=== PATIENT | male | born 1985 | race Caucasian/White ===

== ENCOUNTER 2018-01-07 22:17 | Emergency (ER) | payer MEDICAID ==
[~2018-01-07] VITALS: Ht 177.8 cm; Wt 84.1 kg
[2018-01-07 22:38] VITALS: Ht 177.8 cm; Wt 84.1 kg
[2018-01-08] MEDS ORDERED: ULTRAM50 MG PO (00:42)
[2018-01-08 00:52] VITALS: BP 113/78
== END 2018-01-08 00:52 | disposition home or self-care (01) ==
LOC: D.ER 22:17
DX: S00.93XA Contusion of unspecified part of head, initial encounter (principal); Y04.2XXA Assault by strike against or bumped into by another person, initial encounter; Y93.89 Activity, other specified; Y92.019 Unspecified place in single-family (private) house as the place of occurrence of the external cause; S01.91XA Laceration without foreign body of unspecified part of head, initial encounter; F17.200 Nicotine dependence, unspecified, uncomplicated

== ENCOUNTER 2019-10-08 21:40 | Emergency (ER) | payer MEDICAID ==
[~2019-10-08] VITALS: Ht 177.8 cm; Wt 90.9 kg
[~2019-10-08 21:40] MED LIST: ULTRAM50 MG PO
[2019-10-08 21:44] VITALS: Ht 177.8 cm; Wt 90.9 kg
[2019-10-08 22:13] LABS: BASOPHILS 0.6 % (0-2); EOSINOPHILS 3.4 % (0-7); HEMATOCRIT 41.2 % (42.0-54.0); HEMOGLOBIN 14.2 g/dL (13.5-17.5); IMMATURE GRANULOCYTES 0.3 % (0-5); LYMPHOCYTES 41.9 % (15-50); MCH 28.5 pg (26.0-34.0); MCHC 34.5 g/dL (31.0-37.0); MCV 82.6 fL (80.0-100.0); MEAN PLATELET VOLUME 8.9 fL (7.4-10.4); NEUTROPHILS 44.8 % (40-80); PLATELET COUNT 220 10x3/uL (130-400); RBC 4.99 10x6/uL (4.20-6.10); RDW 12.7 % (11.5-14.5); WBC 7.9 10x3/uL (4.8-10.8)
[2019-10-08 22:29] LABS: CALC OSMOLALITY 279 mosm/kg (275-300); CALCIUM 7.8 mg/dL (8.5-10.1); CARBON DIOXIDE 27.2 mmol/L (21.0-32.0); CHLORIDE - SERUM 107 mmol/L (98-107); CREATININE - SERUM 0.9 mg/dL (0.6-1.3); POTASSIUM - SERUM 3.5 mmol/L (3.5-5.1); SODIUM 140 mmol/L (136-145); UREA NITROGEN 13 mg/dL (7-18); eGFR NON AFRICAN AMERICAN > 90 mL/min (90-120)
[2019-10-08] MEDS ORDERED: KENALOG 0.1 % O15 GM TOPICAL (22:37)
[2019-10-08 22:47] LABS: GLUCOSE 114 mg/dL (74-106)
[2019-10-08 22:59] VITALS: BP 128/71
== END 2019-10-08 22:57 | disposition home or self-care (01) ==
LOC: D.ER 21:40
PROVIDERS: Family Medicine
DX: L24.5 Irritant contact dermatitis due to other chemical products (principal)

== ENCOUNTER 2020-01-29 17:53 | Observation (INO) | payer MEDICAID ==
[~2020-01-29] VITALS: Ht 177.8 cm; Wt 81.8 kg
[~2020-01-29 17:53] MED LIST changes: +KENALOG 0.1 % O15 GM TOPICAL
--- NOTE | 2020-01-29 18:35 | NUR ---
PT LEFT ED VIA STRETCHER FOR CT
[2020-01-29 19:00] VITALS: BP 122/65
--- NOTE | 2020-01-29 19:11 | NUR ---
PT DENIES PAIN TO ARMS OR LEGS AT THIS TIME, PT REPORTS PAIN IS ONLY LOCATED IN R RIBS AND COLLAR BONE AT THIS TIME.
[2020-01-29 19:23] LABS: HEMATOCRIT 41.3 % (42.0-54.0); HEMOGLOBIN 14.1 g/dL (13.5-17.5); MCH 28.2 pg (26.0-34.0); MCHC 34.1 g/dL (31.0-37.0); MCV 82.6 fL (80.0-100.0); MEAN PLATELET VOLUME 8.6 fL (7.4-10.4); PLATELET COUNT 233 10x3/uL (130-400); WBC 21.1 10x3/uL (4.8-10.8)
[2020-01-29 19:28] LABS: INR 0.94 (0.85-1.17); PROTIME 12.5 SECONDS (11.6-15.0)
[2020-01-29 19:32] LABS: ANION GAP 8.8 mmol/L (8-16); CALCIUM 8.4 mg/dL (8.5-10.1); CARBON DIOXIDE 28.8 mmol/L (21.0-32.0); CREATININE - SERUM 1.2 mg/dL (0.6-1.3); POTASSIUM - SERUM 3.6 mmol/L (3.5-5.1)
[2020-01-29 19:37] LABS: ALBUMIN 3.8 g/dL (3.4-5.0); BILIRUBIN - TOTAL 0.38 mg/dL (0.2-1.3); PROTEIN - SERUM 6.8 g/dL (6.4-8.2)
[2020-01-29 19:39] LABS: LYMPHOCYTES 14 % (15-50); MONOCYTES 1 % (2-11); NEUTROPHILS 84 % (40-80); PLATELET ESTIMATE NORMAL
[2020-01-29 20:00] VITALS: BP 112/66
[2020-01-29 21:00] VITALS: BP 99/53
[2020-01-29 22:00] VITALS: BP 106/54
[2020-01-29 23:38] VITALS: BP 99/56; BMI 25.8
[2020-01-30 04:00] VITALS: BP 110/69
--- NOTE | 2020-01-30 07:35 | NUR ---
PT RESTING IN WITH EYES CLOSED. [employer]OUSES STAFF ENTERS ROOM. NO ACUTE DISTRESS NOTED AT THIS TIME. REPORTS PAIN 6/10 AT THIS TIME. DISCUSSED MEDICATION REGIMEN AT THIS TIME. PT VOICES UNDERSTANDING. SALINE LOC TO LEFT AC. SITE WITHOUT REDNESS OR EDEMA. DENIES FURTHER NEEDS AT THIS TIME. CL WITHIN REACH. ENCOURAGED TO CALL WITH NEEDS. CONTINUE POC
[2020-01-30 09:12] VITALS: BP 100/55
[2020-01-30 12:38] VITALS: BP 102/64
[2020-01-30 16:55] VITALS: BP 107/68
[2020-01-30 18:37] VITALS: Ht 177.8 cm; Wt 81.8 kg
[2020-01-30 20:00] VITALS: BP 106/66
[2020-01-31 00:21] VITALS: BP 134/77
[2020-01-31 04:00] VITALS: BP 110/74
[2020-01-31 08:15] VITALS: BP 113/75
[2020-01-31] MEDS ORDERED: HYDROCODON-ACE1 EAC7 PO (10:44)
[2020-01-31] MEDS ORDERED: COLACE100 MG PO (10:44)
--- NOTE | 2020-01-31 11:52 | NUR ---
REVIEWED DC PAPERWORK AND INSTRUCTIONS WITH PT AND SPOUSE. DC PIV, CATHETER INTACT, PT TOLERATED WELL. TOOK PT TO FRONT EXIT VIA WHEELCHAIR AND ASSISTED PT INTO [place].
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
== END 2020-01-31 11:56 | disposition home or self-care (01) ==
LOC: D.ER 17:53 → D.MS 21:20 → OBSVTIME 21:20 → D.MS 21:20
PROVIDERS: Family Medicine; ADMIT Surgery; ATTEND Surgery
DX: S22.41XA Multiple fractures of ribs, right side, initial encounter for closed fracture (principal); S27.2XXA Traumatic hemopneumothorax, initial encounter; W11.XXXA Fall on and from ladder, initial encounter